=== PATIENT | male | born 1985 | race Two or more races ===

== ENCOUNTER 2017-06-08 08:25 | Emergency (ER) | payer BC ==
[~2017-06-08] VITALS: Ht 182.9 cm; Wt 87.5 kg
[2017-06-10] MEDS ORDERED: PROTONIX40 MG (07:09)
== END 2017-06-08 14:54 | disposition home or self-care (01) ==
LOC: ER 08:25
DX: K29.70 Gastritis, unspecified, without bleeding (principal)

== ENCOUNTER → 2017-06-10 | Emergency (ER) | payer BC ==
[~2017-06-10] VITALS: Ht 182.9 cm; Wt 87.5 kg
[~2017-06-10] MED LIST: PROTONIX40 MG
== END | disposition home or self-care (01) ==
LOC: ER 06:55
DX: K52.89 Other specified noninfective gastroenteritis and colitis (principal)

== ENCOUNTER 2021-02-14 09:00 | Outpatient (CLI) | payer BC | END 2021-02-14 09:30 | disposition home or self-care (01) | LOC: PPH VACUNA 09:00 | PROVIDERS: ATTEND Emergency Medicine Pediatric Emergency Medicine | DX: Z23 Encounter for immunization (principal) ==

== ENCOUNTER 2023-11-17 13:00 | Day surgery (SDC) | payer BC ==
[2023-11-10 10:57] VITALS: BP 117/72
[2023-11-10 11:14] LABS: HEMATOCRIT 40.3 % (39.0-48.0); HEMOGLOBIN 14.1 g/dL (13-16.00); MEAN CELL VOLUME 92.8 fL (80.0-100.00); MEAN CORPUSCULAR HEMOGLOBIN 32.4 pg (27.00-32.0); MEAN CORPUSCULAR HGB CONC 34.9 g/dl (32.0-36.0); PLATELET COUNT 229 K/uL (150-450); RED BLOOD COUNT 4.34 M/uL (4.00-6.00); RED CELL DISTRIBUTION WIDTH 12.8 % (11.5-14.5)
[2023-11-10 11:50] LABS: CALCIUM 9.7 mg/dL (8.5-10.1); CREATININE SERUM 1.13 mg/dL (0.70-1.30); GFR 73.02; POTASSIUM 4.91 mEq/L (3.5-5.1)
[2023-11-10 12:21] LABS: URINE APPEARANCE Clear; URINE BILIRRUBIN Negative (NEGATIVE); URINE BLOOD Negative; URINE COLOR Yellow; URINE GLUCOSE Negative (NEGATIVE); URINE KETONE Negative (NEGATIVE); URINE LEUKOCYTE Negative; URINE NITRATE Negative; URINE PROTEIN Negative (NEGATIVE); URINE UROBILINOGEN 0.2 E.U./dl
[2023-11-10 12:25] LABS: URINE BACTERIA 1.2 uL (0.0-1933); URINE EPITHELIAL CELLS 0.3 uL (0.0-38.8); URINE RBC 0.7 uL (0.0-20.8); URINE WBC 0.3 uL (0.0-23.2)
[2023-11-10 12:32] LABS: INR 1.01; PARTIAL THROMBOPLASTIN TIME 32.8 SECONDS (22.0-34.0)
[2023-11-17] MEDS ORDERED: ENOXAPARIN SODIUM 40 MG/0.4 ML SYRINGE SUBCUTANEO ONE ×2 (17:10→20:15)
[2023-11-17] MEDS ORDERED: CEFTRIAXONE SODIUM 2,000 MG VIAL ONE (17:10)
[2023-11-17] MEDS ORDERED: METRONIDAZOLE/SODIUM CHLORIDE 500 MG/100 ML PIGGYBACK IV ONE ×2 (17:10→20:30)
[2023-11-17] MEDS ORDERED: BUPIVACAINE HCL 30 ML VIAL IJ ONE (20:15)
[2023-11-17] MEDS ORDERED: CEFTRIAXONE SODIUM 2,000 MG VIAL IV ONE (20:30)
[2023-11-17] MEDS ORDERED: SUGAMMADEX SODIUM 200 MG/2 ML VIAL IV ONE ×2 (20:34→20:45)
[2023-11-17] MEDS ORDERED: PERCOCET 5-3251 EACH PO (20:56)
[2023-11-17] MEDS ORDERED: NEURONTIN300 MG PO (20:57)
[2023-11-17] MEDS ORDERED: POLY119PG PO (20:57)
[2023-11-17] MEDS ORDERED: CELEBREX200MG PO (20:57)
[2023-11-17] MEDS ORDERED: MORPHINE SULFATE 4 MG/ML VIAL IV ONE ×2 (21:35→22:25)
== END 2023-11-18 00:02 | disposition home or self-care (01) ==
LOC: CIR.AMB 13:00
PROVIDERS: ATTEND Surgery
DX: K40.90 Unilateral inguinal hernia, without obstruction or gangrene, not specified as recurrent (principal)
CPT/HCPCS: 49650; C1781